=== PATIENT | female | born 1950 | race Caucasian/White ===

== ENCOUNTER 2017-05-04 08:18 | Inpatient (IN) | payer MEDICARE, OTHER ==
--- NOTE | 2017-04-22 02:52 | HP ---
PREOPERATIVE HISTORY AND PHYSICAL: DATE OF SURGERY/ADMISSION: 05/04/17 DATE OF VISIT: 04/21/17 ATTENDING PHYSICIAN/SURGEON: Dr. Macario Lee. PROCEDURE: Left total hip replacement. CHIEF COMPLAINT: Left hip pain. HISTORY OF PRESENT ILLNESS: Julia Vargas is a 67-year-old female who presents to the clinic for ongoing left groin pain due to severe osteoarthritis of her left hip. She has failed conservative management and therefore has agreed to undergo a left total hip replacement with Dr. Lee on 05/04/17. PAST MEDICAL HISTORY: 1. Hyperlipidemia. 2. Osteoarthritis. PAST SURGICAL HISTORY: 1. Right total hip replacement in 2011. 2. Right knee arthroscopy. 3. Left knee arthroscopy. 4. Tubal ligation. 5. Tonsillectomy. MEDICATIONS: 1. Doxycycline. 2. Naproxen. 3. Atorvastatin. ALLERGIES: No known drug allergies. FAMILY HISTORY: Reviewed and noncontributory. SOCIAL HISTORY: She is a retired teacher. She smokes a pack per day. She drinks alcohol occasionally and denies recreational drug use. REVIEW OF SYSTEMS: General: Negative for fevers, chills, or night sweats. No known anesthesia problems. HEENT: Negative for headache, lightheadedness, or syncopal episodes. Integumentary: Negative for abrasions, lesions, or open wounds. Cardiothoracic: Negative for chest pain, palpitations, or edema. Negative for hypertension. Pulmonary: Negative for shortness of breath with exertion, chronic cough, or COPD. GI: Negative for nausea, vomiting, diarrhea, constipation, or GERD. : Negative for nocturia, urinary frequency, urinary urgency, history of UTIs, or kidney problems. Musculoskeletal: Positive for current complaint. She also has a history of humerus fracture that was nonoperative. Neuro: Negative for paresthesias, numbness, history of seizure, stroke, or epilepsy. Endocrine: Negative for diabetes or thyroid issues. Hematologic: Negative for easy bruising, anemia, excessive bleeding, or history of DVT. Infectious Disease: Negative for history of MRSA, hep C, or HIV. PHYSICAL EXAMINATION GENERAL: Well-developed, well-nourished 67-year-old female, in no acute distress. VITAL SIGNS: Weight is 145 pounds, pulse 71, blood pressure is 146/89, temperature 97.5, BMI of 23.4. HEENT: Normocephalic, atraumatic. NECK: Supple. No palpable lymph nodes. PULMONARY: Lungs are clear to auscultation bilaterally. No wheezes, rales, or rhonchi. CARDIOVASCULAR: Regular rate and rhythm. S1, S2. There were no rubs or gallops. No edema. ABDOMEN: Soft, nontender, nondistended. Bowel sounds throughout. MUSCULOSKELETAL: Left lower extremity, the left hip has painful abduction of 25 degrees, flexion of 80 degrees and painful, extension 20 degrees and painful. Rotation is very limited and painful. Straight leg raise on the left is painful . Painful left groin. No swelling or edema of bilateral legs. Dorsalis pedis and posterior tibialis pulses are 2+ and sensation is intact to light touch. NEUROLOGIC: Alert and oriented x3. Cranial nerves II through XII are intact. Sensation is grossly intact to light touch. STUDIES: X-rays done on 03/15/17, the left hip shows there is moderate narrowing of the left hip joint space with spurring about the femoral head. There is mild sclerosis and overgrowth about the acetabulum. IMPRESSION: Left hip osteoarthritis, severe. PLAN: The patient is scheduled to undergo a left total hip replacement with Dr. Lee on 05/04/17. She will return to the office in 4 to 6 weeks postop for followup. A prescription for Percocet was e-scribed to the patient's pharmacy for postoperative management and Colace will be prescribed for opiate- induced constipation prevention. ALFREDO HERNANDEZ [id number]/[facility] #: [id number] LULU
[~2017-05-04 08:18] MED LIST: Buffered Lidocaine 0.9% SYRIN* 5 ML/SYR SYRINGE INTRADERM ONE; Famotidine IV* 10 MG/ML 2 ML (20 mg) IV ONE; Gabapentin CAP(*) 300 MG PO ONE
[2017-05-04] MEDS ORDERED: ceFAZolin 2 GM PREMIX(*) 2 GM/50 ML BAG IVPB ONE (08:19)
[2017-05-04] MEDS ORDERED: Famotidine IV* 10 MG/ML 2 ML (20 mg) ONE (08:19)
[2017-05-04] MEDS ORDERED: Buffered Lidocaine 0.9% SYRIN* 5 ML/SYR SYRINGE ONE (08:19)
[2017-05-04] MEDS ORDERED: Gabapentin CAP(*) 300 MG ONE (08:19)
[2017-05-04] MEDS ORDERED: fentaNYL* 50 MCG/ML 2 ML VIAL (100 MCG VIAL) ONE ×3 (09:12→13:48)
[2017-05-04] MEDS ORDERED: Midazolam* 1 MG/ML 5 ML VIAL (5 MG) ONE (09:12)
[2017-05-04] MEDS ORDERED: KETAMINE HCL* 50 MG/ML 10 ML VIAL ONE (09:12)
[2017-05-04] MEDS ORDERED: Ondansetron INJ* 2 MG/ML VIAL ONE (09:13)
[2017-05-04] MEDS ORDERED: Propofol* 10 MG/ML 20 ML BTL IV PUSH ONE (09:13)
[2017-05-04] MEDS ORDERED: Lidocaine 2% PF * 5 ML VIAL ONE (09:13)
[2017-05-04] MEDS ORDERED: Ketorolac INJ* 30 MG/ML 1 ML VIAL ONE (09:13)
[2017-05-04] MEDS ORDERED: DiMENhydriNATE IV* 50 MG/ML VIAL ONE (09:13)
[2017-05-04] MEDS ORDERED: Dexamethasone IV* 4 MG/ML 1 ML (4 MG) ONE (09:13)
[2017-05-04] MEDS ORDERED: Morphine PF AMP (0.5MG/ML)* 5 MG/10 ML AMP ONE (09:23)
[2017-05-04] MEDS ORDERED: DiMENhydriNATE IV* 50 MG/ML VIAL IV PUSH PRN (11:57)
[2017-05-04] MEDS ORDERED: Gabapentin CAP(*) 100 MG PO ONE (11:59)
[2017-05-04] MEDS ORDERED: HYDROmorphone* 1 MG/ML 1 ML SYR ONE ×2 (13:18→13:48)
[2017-05-04] MEDS ORDERED: Acetaminophen TAB* 325 MG PO PRN (13:20)
[2017-05-04] MEDS ORDERED: oxyCODONE TAB* 5 MG TAB PO PRN ×2 (13:20→13:26)
[2017-05-04] MEDS ORDERED: Magnesium Hydroxide LIQ* 30 ML UDC PO PRN (13:20)
[2017-05-04] MEDS ORDERED: diPHENhydraMINE IV* 50 MG/ML 1 ml VIAL (BENADRYL) IV PRN (13:20)
[2017-05-04] MEDS ORDERED: Ondansetron INJ* 2 MG/ML VIAL IV PRN (13:20)
[2017-05-04] MEDS ORDERED: oxyCODONE/Acetamin 5/325 MG* TAB PO PRN (13:20)
[2017-05-04] MEDS: HYDROmorphone* 1 MG/ML 1 ML SYR IV PRN ×5 (13:24→13:45)
[2017-05-04] MEDS ORDERED: Gabapentin CAP(*) 100 MG ONE (13:56)
--- NOTE | 2017-05-04 14:04 | RAD ---
INDICATION: Left hip arthroplasty COMPARISON: March 15, 2017 TECHNIQUE: A single AP view of the lower pelvis is submitted. FINDINGS: There is left hip arthroplasty. The single view demonstrates that the components appear well seated. There is no evidence of periprosthetic fracture. There are soft tissue changes compatible with recent surgery. There is an existing right hip prosthesis which appears normally seated on this single supine view. IMPRESSION: INTERVAL LEFT HIP ARTHROPLASTY. THE PROSTHESIS APPEARS WELL SEATED
[2017-05-04] MEDS ORDERED: oxyCODONE/Acetamin 5/325 MG* TAB ONE (14:05)
[2017-05-04] MEDS: oxyCODONE/Acetamin 5/325 MG* TAB PO PRN ×4 (14:06→22:04)
[2017-05-04] MEDS ORDERED: HYDROmorphone* 1 MG/ML 1 ML SYR IV SLOW PU ONE (14:07)
[2017-05-04] MEDS ORDERED: fentaNYL* 50 MCG/ML 2 ML VIAL (100 MCG VIAL) IV SLOW PU ONE (14:10)
[2017-05-04] MEDS ORDERED: ceFAZolin VIAL(*) 1 GM in NS 0.9% 50 ML* 50 ML IVPB SCH (17:00)
[2017-05-04] MEDS: ceFAZolin VIAL(*) 1 GM in NS 0.9% 50 ML* 50 ML IVPB SCH (18:05)
[2017-05-04] MEDS: Ferrous Sulfate TAB* 325 MG PO SCH (20:21)
[2017-05-04] MEDS: Morphine INJ* 4 MG/ML 1 ML SYRINGE IV PRN (20:22)
[2017-05-05] MEDS: oxyCODONE/Acetamin 5/325 MG* TAB PO PRN ×6 (02:03→23:31)
[2017-05-05] MEDS: ceFAZolin VIAL(*) 1 GM in NS 0.9% 50 ML* 50 ML IVPB SCH ×2 (02:14→10:41)
--- NOTE | 2017-05-05 03:03 | OP ---
DATE OF OPERATION: 05/04/17 - ROOM #346 DATE OF : 50 SURGEON: Macario Lee MD FIRST ASSISTANTS: ALFREDO Govea; and Jade Montana registered nurse surgical services. ANESTHESIOLOGIST: Emani Brock MD ANESTHESIA: LMA and general. PRE-OP DIAGNOSIS: Severe arthritis of the left hip. POST-OP DIAGNOSIS: Severe arthritis of the left hip. OPERATIVE PROCEDURE: Left total hip replacement. COMPONENTS UTILIZED: Yamel Continuum cup 50-mm outer diameter with 1 screw and elevated liner for a 32 head with the elevation located posteriorly. On the femoral side, an M/L Taper standard size 9 stem with +0, 32-mm cobalt chrome head. COMPLICATIONS: There were no complications. DRAINS: There were no drains. BLOOD LOSS: 150 mL. REPLACEMENT: Crystalloid fluids. OPERATIVE INDICATION: Severe left hip arthritis. DESCRIPTION OF PROCEDURE: The patient was brought to the operating room and placed on the operating room table in the supine position. Following the administration of the anesthetic, a Luo catheter was inserted and she was carefully placed in the right lateral position with an axillary pad and her pelvis was secured over the ASIS and the sacrum with hip positioners. An extra blanket was placed under the downside trochanter to elevate the pelvis towards the ceiling and blankets were placed between the legs. The groin was sealed off. The left hip was given a preliminary chlorhexidine prep and then the final ChloraPrep from the left hip to the foot. After prepping and draping and sealing off, we did our universal protocol time-out confirming Julia Vargas and our plan for left total hip replacement. We all agreed and we proceeded. The hip was approached with a posterior lateral skin incision, going from the greater trochanter distally for an inch and proximally a little bit posteriorly for 2.5 inches. The skin and subcu divided down to the deep fascia. Careful hemostasis checked and achieved throughout the case utilizing electrocautery. The fascia shreya was opened longitudinally and the Charnley retractor was inserted. The gluteus medius and minimus were retracted anteriorly with blunt Hohmann retractor and the piriformis and the conjoint tendon were both removed from their piriformis fossa insertions, marked with #2 Surgidac and this stitch also included the underlying posterior inferior capsular flap. The hip had clear goldish synovial fluid, the hip had some synovitis. The hip was dislocated without difficulty. The femoral neck was marked with the M/L Taper neck cutting guide and then the femoral neck was cut approximately a fingerbreadth proximal to the lesser trochanter. The femoral head, complete eburnation on the superior surface. The acetabulum, complete eburnation on its weightbearing surface as well. On the acetabular side, we used sharp Hohmann retractors anteriorly and posteriorly, blunt Hohmann retractor superiorly and inferiorly. The acetabular fossa was cleaned out and reaming was done 44 through 50, and at 50, we had nice bleeding subchondral and cancellous bone. A 50 Continuum cup was impacted into position in 45 degrees of abduction, 20 degrees of anteversion with a nice tight fit. A screw was placed superiorly and an elevator liner for a 32 head was placed posteriorly. Attention was turned to the femoral side. On the femoral side, we used the canal finder and trochanteric reamer. Broaching was done 5 through 9, and at 9 , we had a nice tight fit. The 9 M/L Taper standard stem was impacted into position in 15 to 20 degrees of anteversion. A trial reduction was done with a +0 and the +0 had a nice soft tissue tension. A similar hip extension as preoperatively, a very slight push pull and extension. No tendency toward levering or dislocation with flexion of 90 degrees and adduction and internal rotation approaching 30 to 40 degrees. The trunnion was cleaned and a +0, 32-mm cobalt chrome head was impacted under the trunnion, reduced without difficulty. We irrigated several times during closure with the pulse saline irrigation and swabbing of the soft tissues for debris with lap sponges. After obtaining careful hemostasis, I did not think drains were necessary. The piriformis and conjoint tendon were reapproximated through 2 drill holes to the posterior superior greater trochanter. The fascia shreya was then closed with interrupted # 1 Polysorb [id number] fashion in the same and then we got up to the fascia and the gluteus paulina and it was 0 Polysorb. The deep subcu 0 Polysorb, superficial subcu 2-0 Polysorbs inverted, and on the skin, alyx. The skin was washed and dried and covered with Betadine-soaked release, followed by sterile gauze, ABD pads, and then paper tape. The patient was returned to the supine position in the hospital bed and to the recovery room in stable and satisfactory condition, having tolerated the procedure very well. [id number]/[facility] #: [id number] LULU
[2017-05-05 05:41] LABS: Hematocrit 35 % (35-47); Hemoglobin 11.7 g/dl (12.0-16.0)
[2017-05-05 06:09] LABS: BUN/Creatinine Ratio 16.3 (8-20); Blood Urea Nitrogen 14 mg/dL (6-24); CO2 Carbon Dioxide 30 mmol/L (22-32); Calcium 7.9 mg/dL (8.6-10.3); Chloride 109 mmol/L (101-111); EGFR African American 84.6 (>60); EGFR Non-African American 65.8 (>60); Glucose 132 mg/dL (70-100); Potassium 3.6 mmol/L (3.5-5.0); Sodium 139 mmol/L (133-145)
[2017-05-05] MEDS: Vitamin THERAPEUTIC TAB PO SCH (09:22)
[2017-05-05] MEDS: Ferrous Sulfate TAB* 325 MG PO SCH ×2 (09:22→19:32)
[2017-05-05] MEDS: Atorvastatin* 40 MG TAB PO SCH (09:22)
[2017-05-05] MEDS: Aspirin TAB* 325 MG PO SCH (09:22)
[2017-05-05] MEDS: Magnesium Hydroxide LIQ* 30 ML UDC PO SCH (19:32)
[2017-05-05] MEDS: Morphine INJ* 4 MG/ML 1 ML SYRINGE IV PRN (21:43)
[2017-05-06] MEDS: Morphine INJ* 4 MG/ML 1 ML SYRINGE IV PRN ×2 (02:04→06:29)
[2017-05-06] MEDS: oxyCODONE/Acetamin 5/325 MG* TAB PO PRN ×5 (03:45→20:43)
[2017-05-06 07:19] LABS: Hematocrit 36 % (35-47)
[2017-05-06] MEDS: Aspirin TAB* 325 MG PO SCH (08:45)
[2017-05-06] MEDS: Vitamin THERAPEUTIC TAB PO SCH (08:45)
[2017-05-06] MEDS: Ferrous Sulfate TAB* 325 MG PO SCH ×2 (08:45→20:42)
[2017-05-06] MEDS: Atorvastatin* 40 MG TAB PO SCH (08:45)
[2017-05-06] MEDS: Magnesium Hydroxide LIQ* 30 ML UDC PO SCH ×2 (08:46→20:44)
[2017-05-07] MEDS: oxyCODONE/Acetamin 5/325 MG* TAB PO PRN ×3 (01:18→10:19)
[2017-05-07 06:00] LABS: Hematocrit 35 % (35-47); Hemoglobin 11.6 g/dl (12.0-16.0)
[2017-05-07] MEDS: Magnesium Hydroxide LIQ* 30 ML UDC PO SCH (08:05)
[2017-05-07] MEDS: Atorvastatin* 40 MG TAB PO SCH (08:09)
[2017-05-07] MEDS: Vitamin THERAPEUTIC TAB PO SCH (08:09)
[2017-05-07] MEDS: Aspirin TAB* 325 MG PO SCH (08:09)
[2017-05-07] MEDS: Ferrous Sulfate TAB* 325 MG PO SCH (08:09)
[2017-05-07 08:10] VITALS: BP 115/66
--- NOTE | 2017-05-07 09:49 | PN ---
Progress Note - Progress Note Date of Service: 05/07/17 SOAP: Subjective: 67 y/o female s/p L ANDREW by Dr. Lee 05/04/2017. Patient feeling well, increased pain, fatigue yesterday, improved today. working well with PT, pain managed with PO percocet. VSS, afebrile. eager for D/C Objective: General- Well appearing, NAD, resting in bed comfortably. NAD MSK- incision C/D/I, no drainage noted, mild ecchymosis, no erythema. + mild swelling anterior thigh. PT 2+ b/l, neg homans b/l, sensation intact grossly LLE, + DF/PF LLE. Vital Signs Temp 98.4 F 05/07/17 07:39 Pulse 68 05/07/17 07:39 Resp 16 05/07/17 08:05 BP 115/66 05/07/17 07:39 Pulse Ox 97 05/07/17 08:00 Intake & Output 05/06/17 05/07/17 05/07/17 18:59 06:59 18:59 Intake Total 675 2280 Output Total 800 500 0 Balance -125 1780 0 Intake: Oral 675 2280 Output: Urine 700 500 0 Emesis 100 Other: Estimated Void Medium Date of Last Bowel 05/06/17 Movement # Bowel Movements 3 0 Estimated Stool Amount Medium Medium # Voids 4 Laboratory Results - last 24 hr 05/07/17 05:44 Hgb 11.6 L Hct 35 Assessment: stable 67 y/o female s/p L ANDREW by Dr. Lee 05/04/2017. Plan: - DVT prophylaxis- daily asa 325mg - Continue PT/ OT - [facility] home services at D/C - D/C today, follow up with Dr. Lee 4-6 weeks Active Medications Generic Name Dose Route Start Last Admin Trade Name Freq PRN Reason Stop Dose Admin Acetaminophen 650 mg 05/04/17 13:20 Tylenol Tab* PO Q4H PRN PAIN OR TEMPERATURE Aspirin 325 mg 05/05/17 09:00 05/07/17 08:09 Aspirin Tab* PO 325 mg DAILY RADHA Administration Atorvastatin Calcium 40 mg 05/05/17 09:00 05/07/17 08:09 Lipitor* PO 40 mg QAM RADHA Administration Diphenhydramine HCl 25 mg 05/04/17 13:20 Benadryl Iv* IV Q6H PRN itching or sleep Ferrous Sulfate 325 mg 05/04/17 21:00 05/07/17 08:09 Ferrous Sulfate Tab* PO 325 mg BID RADHA Administration Lactated Ringer's 1,000 mls @ 100 mls/hr 05/04/17 14:00 05/05/17 01:37 Lactated Ringers 1000 Ml Bag* IV 100 mls/hr PER RATE RADHA Administration Magnesium Hydroxide 30 ml 05/04/17 13:20 05/05/17 09:22 Milk Of Magnesia Liq* PO 30 ml Q6H PRN Administration constipation Magnesium Hydroxide 30 ml 05/05/17 21:00 05/07/17 08:05 Milk Of Magnesia Liq* PO Not Given BID RADHA Morphine Sulfate 2 mg 05/04/17 13:20 05/06/17 06:29 Morphine Inj (Syringe)* IV 2 mg Q4H PRN Administration PAIN - SEVERE Multivitamins 1 tab 05/05/17 09:00 05/07/17 08:09 Theragran Tab* PO 1 tab DAILY RADHA Administration Ondansetron HCl 4 mg 05/04/17 13:20 Zofran Inj* IV Q6H PRN nausea Oxycodone HCl 10 mg 05/04/17 13:20 05/06/17 10:11 Roxycodone Tab* PO 10 mg Q4H PRN Administration PAIN - MODERATE TO SEVERE Oxycodone HCl 5 mg 05/04/17 13:26 Roxycodone Tab* PO Q4H PRN PAIN - MILD TO MODERATE Oxycodone/Acetaminophen 1 tab 05/04/17 13:20 Percocet 5/325 Tab* PO Q4H PRN PAIN - MILD TO MODERATE Oxycodone/Acetaminophen 2 tab 05/04/17 13:20 05/07/17 06:11 Percocet 5/325 Tab* PO 2 tab Q4H PRN Administration PAIN - MODERATE TO SEVERE
--- NOTE | 2017-05-09 22:50 | DS ---
Discharge Summary Date of Admission: Date of Discharge: Provider: Principle Diagnosis: Secondary Diagnoses: See H&P Principle procedure: Consultations: Physical therapy, Occupational Therapy HPI: Refer to H&P Hospital Course: The patient was admitted on 05/04/2017 and underwent left total hip replacement. She tolerated the procedure well and there were no complications. The patient had general and LMA anesthesia and was quite comfortable in the immediate postoperative period. On POD#1 the patients H&H was 11.7 and 35. Dressing was CDI, She was neurovascularly intact with good sensation distal to the left hip. She could demonstrate dorsi and plantar flexion with good strength. Participation in physical and occupational therapy was begun. Pain management was adequate with Percocet PO. On POD#2 the urinary catheter was discontinued and the patient was able to void spontaneously. The dressing was changed and the wound was found to be benign with minimal drainage and erythema. Vital signs were stable and the patient was afebrile. POD#3 bowel and bladder had normalized and the patient was cleared by physical therapy for safe discharge to home with services. She will continue with the exercises learned with physical therapy and arrangements were made for visiting home physical therapy as well. At discharge the H&H was 11.6 adn 35 and vital signs were stable. The patient will resume the home medications as indicated in the discharge instructions. Max and/or sutures will be removed in 10-14 days. She will take aspirin 325mg daily for DVT prophylaxis. Medications at discharge: Home Medications Medication Instructions Recorded Confirmed Type Atorvastatin* [Lipitor 40 MG*] 40 mg PO QAM 04/21/17 05/04/17 History Calcium Carbonate-Cholecalcife 1 PO QAM 04/21/17 History [Calcium 600+D 600-800 mg-Unit] Doxycycline (Rosacea) [Doxycycline] 20 mg PO QAM 04/21/17 05/04/17 History Acetaminophen TAB* [Tylenol TAB*] 650 mg PO Q4H PRN #0 tab 05/07/17 Rx Aspirin TAB* [Aspirin 325 MG TAB*] 325 mg PO DAILY tab 05/07/17 Rx Ferrous Sulfate TAB* 325 mg PO BID tab 05/07/17 Rx Naproxen 500 mg PO BID #0 05/07/17 05/04/17 Rx oxyCODONE TAB* [Roxycodone TAB 5 5 mg PO Q4H PRN #0 tab MDD 12 05/07/17 Rx mg*] Condition: Stable Disposition: Home with home health PT and PT Follow up: Patient will follow up with Dr. Lee in 4-6 weeks at [facility] Orthopedics Vital Signs Temp 98.4 F 05/07/17 07:39 Pulse 68 05/07/17 07:39 Resp 16 05/07/17 10:19 BP 115/66 05/07/17 07:39 Pulse Ox 97 05/07/17 08:00 05/07/17 05:44 Hgb 11.6 L Hct 35
--- NOTE | 2017-05-10 04:05 | DS ---
DISCHARGE SUMMARY: DATE OF ADMISSION: 05/04/17 DATE OF DISCHARGE: 05/07/17. ATTENDING PROVIDER: Dr. Macario Lee * (DICTATED BY ALFREDO NIELSEN) PROCEDURE: Left total hip replacement. CHIEF COMPLAINT: 1. Left hip pain. 2. Hyperlipidemia. 3. Generalized osteoarthritis. DISCHARGE DIAGNOSES: 1. Status post left total hip replacement. 2. Hyperlipidemia. 3. Generalized osteoarthritis. CONSULTATIONS: 1. Physical Therapy. 2. Occupational Therapy. BRIEF HISTORY: The patient is a very pleasant 67-year-old female with severe endstage degenerative arthritis of the left hip. She failed conservative treatment and elected to undergo a left total hip arthroplasty on 05/04/[address] Lee. HOSPITAL COURSE: Ms. Vargas was admitted to [facility] on 05/04/17, where she underwent a left total hip replacement, which was uncomplicated. Postoperatively, she recovered on the surgical short stay unit. Her Luo was removed on postoperative day 2 and she was voiding on her own without difficulty. Her pain was controlled with p.o. Percocet. She was advanced to a regular diet. She was weightbearing as tolerated on the left lower extremity and advanced appropriately with physical therapy and occupational therapy. Her DVT prophylaxis was managed with aspirin 325 mg p.o. daily. By postoperative day 3, she was orthopedically and medically stable for discharge to go home with home services. PHYSICAL EXAMINATION: General: Well appearing, in no acute distress, alert and oriented. Vital signs: Temperature of 98.4, pulse 68, respirations 16, blood pressure 115/66, pulse oxygenation 97% on room air. Musculoskeletal: Incisions clean, dry, and intact, with no drainage noted. Some mild ecchymosis. No erythema. Mild swelling in the anterior thigh, redressed without difficulty. Posterior tibial pulses 2+ bilaterally. Negative Homans sign bilaterally. Sensation is grossly intact to left lower extremity. Positive dorsiflexion and plantarflexion, left lower extremity. DIAGNOSTIC STUDIES/LAB DATA: On date of discharge, H and H of 11.6 and 35. Radiographs: Postoperative films demonstrates a hip arthroplasty in satisfactory position. DISCHARGE MEDICATIONS: 1. Acetaminophen 650 mg p.o. q.4 to 6 hours p.r.n. for pain. 2. Aspirin 325 mg p.o. daily. 3. Atorvastatin 40 mg p.o. daily. 4. Calcium and vitamin D supplementation, one tablet daily. 5. Doxycycline 20 mg p.o. q.a.m., #7. 6. Ferrous sulfate 325 mg p.o. b.i.d. 7. Naproxen 500 mg p.o. b.i.d., not to be taken with aspirin. 8. Oxycodone 5 mg p.o. q.4 to 6 hours p.r.n. pain. CONDITION ON DISCHARGE: Good. DISCHARGE INSTRUCTIONS: Ms. Vargas is a very pleasant 67-year-old female, status post left total hip replacement, postoperative day 3, which is uncomplicated. She is orthopedically and medically stable for discharge to go home with home services. Her labs and vital signs are stable. She will restart her home medications. She will take aspirin 325 mg p.o. daily for DVT prophylaxis. She will be seen by visiting home nurse services and will have the alyx removed in approximately 10 to 14 days and continue with physical therapy at home. She will continue her physical therapy exercises as shown in the hospital. She will follow up with Dr. Lee in approximately 4 to 6 weeks. She will go to the ER should she develop any chest pain or shortness of breath , and call the office should she have any fever, redness or increasing pain. ALFREDO NIELSEN [id number]/[facility] #: [id number] MTDD
== END 2017-05-07 10:35 | disposition home health service (06) | DRG 470 ==
LOC: AA 08:18 → SSU 15:07
PROVIDERS: ADMIT Orthopaedic Surgery; ATTEND Orthopaedic Surgery
PROC: 0SRB02A Replacement of Left Hip Joint with Metal on Polyethylene Synthetic Substitute, Uncemented, Open Approach (ICD-10-PCS; principal; 2017-05-04 10:00)
DX: M16.12 Unilateral primary osteoarthritis, left hip (principal); Z96.641 Presence of right artificial hip joint; I10 Essential (primary) hypertension; D62 Acute posthemorrhagic anemia; E78.5 Hyperlipidemia, unspecified; F17.200 Nicotine dependence, unspecified, uncomplicated; Z72.89 Other problems related to lifestyle; Z98.51 Tubal ligation status; Z79.82 Long term (current) use of aspirin
CPT/HCPCS: 36415; 72170; 80048; 85014; 85018; 94760; A9270-GY; C1713; C1776; J0690; J1100; J1170; J1240; J1885; J2250; J2270; J2405; J2704; J3010